=== PATIENT | female | born 1950 | race Caucasian/White ===

== ENCOUNTER → 2024-08-27 08:25 | Outpatient (REF) | payer MEDICARE, SELFPAY | LOC: RAD 08:25 | PROVIDERS: ATTENDING PHYSICIAN Podiatrist | DX: S92.502A Displaced unspecified fracture of left lesser toe(s), initial encounter for closed fracture (principal); N95.9 Unspecified menopausal and perimenopausal disorder | CPT/HCPCS: 77080 ==